=== PATIENT | female | born 1965 | race Hispanic/Latino ===

== ENCOUNTER 2016-04-24 15:21 | Observation (INO) | payer OTHER ==
[~2016-04-24] VITALS: Ht 157.5 cm; Wt 101.7 kg
[~2016-04-24 15:21] MED LIST: AMLODIPINE BESY10 MG PO; ANAPROX DS550 M1 PO; ASPIRIN EC325 MG PO; CELEBREX200 MG PO; CELECOXIB200 MG PO; CLONIDINE HCL0.1 MG PO; COLACE100 MG PO; ELIMITE 5% CREA60 GM TP; ELOCON 0.1% CRE15 GM TP; ENDOCET 5-3251 EACH PO; FEOSOL325 MG PO; FLONASE16 G1 BOTH NARES; FLUOXETINE HCL10 M1 PO; FLUOXETINE HCL20 M1 PO; FLUOXETINE HCL20 MG PO; FLUTICASONE PRO16 GM BOTH NARES; LOPRESSOR50 MG PO; LORATADINE10 M2 PO; LOSARTAN-HCTZ1 EAC1 PO; MEDROL DOSEPAK4 MG PO; METOPROLOL TART25 MG PO; METOPROLOL TART50 MG PO; MOBIC7.5 MG PO; MOMETASONE FURO45 GM TP; MOTRIN800 MG PO; NAPROSYN500 MG PO; NIX 5% CREAM60 GM TP; NOHOMEMEDS; NORCO 5/3251 TABLET PO; NYSTATIN-TRIAMC15 G1 TP; ST. JOSEPH ASPI81 MG PO; ULTRAM50 MG PO; VENLAFAXINE HC150 M1 PO; VENLAFAXINE HCL75 M3 PO; ZOFRAN ODT4 MG PO
[2016-04-24 16:12] LABS: HEMATOCRIT 39.5 % (36.0-46.0); MCH 28.9 PG (29.0-34.0); MCHC 33.2 G/DL (30.0-36.0); MEAN PLAT.VOLUME 10.1 uM^3 (9.5-12.4); PLATELET COUNT 211 K/uL (156-360); RBC DIS.WIDTH-CV 13.7 % (11.8-14.6); RBC DIS.WIDTH-SD 42.6 % (39-53); RED BLOOD COUNT 4.54 M/uL (3.80-5.20); WHITE BLOOD COUNT 7.3 K/uL (4.1-10.2)
[2016-04-24 16:23] LABS: D-DIMER ELISA 0.29 mg/L FEU (< 0.57)
[2016-04-24 16:39] LABS: CHLORIDE 102 mEq/L (99-109); POTASSIUM 3.5 mEq/L (3.7-5.4); SODIUM 140 mEq/L (136-147)
[2016-04-24 16:40] LABS: GLUCOSE 97 mg/dL (70-99)
[2016-04-24 16:42] LABS: ANION GAP 9 MEQ/L (2-14)
[2016-04-24 16:44] LABS: GFR ESTIMATE (CALCULATED) > 59 mL/min/
[2016-04-24 16:45] LABS: UREA NITROGEN (BUN) 17 mg/dL (9-23)
[2016-04-24 16:51] LABS: TROP-I INTERPRETATION NEGATIVE; TROPONIN-I < 0.01 ng/mL (0.0-0.30)
[2016-04-24 18:52] LABS: TROP-I INTERPRETATION NEGATIVE; TROPONIN-I < 0.01 ng/mL (0.0-0.30)
[2016-04-24 19:06] LABS: PROTHROMBIN TIME 10.2 (9.2-11.2); PTT 28.3 (25-32)
[2016-04-24 19:09] LABS: TOTAL BILIRUBIN 0.7 mg/dL (0.0-1.0)
[2016-04-24 19:10] LABS: ALKALINE PHOSPHATASE 86 IU/L (3-129)
[2016-04-24 19:13] LABS: DIRECT BILIRUBIN 0.3 mg/dL (0.0-0.3)
[2016-04-24] MEDS ORDERED: VENLAFAXINE HCL75 M3 PO (21:02)
[2016-04-24] MEDS ORDERED: FLONASE16 G1 BOTH NARES (21:03)
[2016-04-24] MEDS ORDERED: ZOLPIDEM TARTRA10 MG PO (21:03)
[2016-04-24] MEDS ORDERED: ZANTAC150 MG PO (21:03)
[2016-04-24 22:29] VITALS: BP 116/62
[2016-04-25 01:27] LABS: TROP-I INTERPRETATION NEGATIVE; TROPONIN-I < 0.01 ng/mL (0.0-0.30)
[2016-04-25 04:54] VITALS: BP 100/53
[2016-04-25 05:57] LABS: HEMATOCRIT 38.1 % (36.0-46.0); MCHC 31.8 G/DL (30.0-36.0); MCV 88.2 FL (83-99); MEAN PLAT.VOLUME 10.4 uM^3 (9.5-12.4); PLATELET COUNT 220 K/uL (156-360); RBC DIS.WIDTH-SD 45.7 % (39-53); RED BLOOD COUNT 4.32 M/uL (3.80-5.20); WHITE BLOOD COUNT 6.3 K/uL (4.1-10.2)
[2016-04-25 06:02] LABS: TROP-I INTERPRETATION NEGATIVE; TROPONIN-I < 0.01 ng/mL (0.0-0.30)
[2016-04-25 06:14] LABS: ANION GAP 8 MEQ/L (2-14); CHLORIDE 103 MEQ/L (99-109); GFR ESTIMATE (CALCULATED) 56 mL/min/; GLUCOSE 86 mg/dL (70-99); POTASSIUM 3.9 MEQ/L (3.7-5.4); SAMPLE HEMOLYSIS CHECK 0; SAMPLE ICTERIC CHECK 0; SAMPLE LIPEMIA CHECK 0; SODIUM 141 MEQ/L (136-147); UREA NITROGEN (BUN) 21 mg/dL (9-23)
[2016-04-25 08:47] VITALS: BP 103/58
[2016-04-25 11:36] VITALS: BP 100/58
== END 2016-04-25 14:42 | disposition home or self-care (01) ==
LOC: EME 15:21 → EDOF 20:58 → 5WEST 20:58
PROVIDERS: Hospitalist; Physician Assistant Medical
DX: R07.89 Other chest pain (principal); R94.31 Abnormal electrocardiogram [ECG] [EKG]; R20.0 Anesthesia of skin; M79.672 Pain in left foot; M54.9 Dorsalgia, unspecified; I10 Essential (primary) hypertension; E78.5 Hyperlipidemia, unspecified; E66.01 Morbid (severe) obesity due to excess calories; Z68.41 Body mass index [BMI] 40.0-44.9, adult; M19.90 Unspecified osteoarthritis, unspecified site; Z87.891 Personal history of nicotine dependence; F41.9 Anxiety disorder, unspecified; F32.9 Major depressive disorder, single episode, unspecified
CPT/HCPCS: 71020; 72148; 80048; 80076; 84484; 85027; 85379; 85610; 85730; 93005; 93970; 99281; 99285; G0378; J1650; J1885; J2060; J2270

== ENCOUNTER 2016-12-16 20:23 | Emergency (ER) | payer OTHER ==
[~2016-12-16] VITALS: Ht 157.5 cm; Wt 101.1 kg
[~2016-12-16 20:23] MED LIST changes: +ZANTAC150 MG PO; +ZOLPIDEM TARTRA10 MG PO
[2016-12-16 21:21] LABS: HEMATOCRIT 38.6 % (36.0-46.0); MCH 27.6 PG (29.0-34.0); MCHC 32.6 G/DL (30.0-36.0); MCV 84.6 FL (83-99); MEAN PLAT.VOLUME 10.8 uM^3 (9.5-12.4); PLATELET COUNT 233 K/uL (156-360); RBC DIS.WIDTH-CV 13.2 % (11.8-14.6); RBC DIS.WIDTH-SD 40.7 % (39-53); RED BLOOD COUNT 4.56 M/uL (3.80-5.20); WHITE BLOOD COUNT 6.9 K/uL (4.1-10.2)
[2016-12-16 21:31] LABS: CHLORIDE 106 mEq/L (99-109); POTASSIUM 3.2 mEq/L (3.7-5.4); SODIUM 140 mEq/L (136-147)
[2016-12-16 21:33] LABS: GLUCOSE 106 mg/dL (70-99)
[2016-12-16 21:35] LABS: ANION GAP 10 MEQ/L (2-14)
[2016-12-16 21:37] LABS: GFR ESTIMATE (CALCULATED) > 59 mL/min/
[2016-12-16 21:38] LABS: UREA NITROGEN (BUN) 24 mg/dL (9-23)
[2016-12-16 21:42] LABS: TROP-I INTERPRETATION NEGATIVE; TROPONIN-I < 0.01 ng/mL (0.0-0.30)
[2016-12-16 23:30] LABS: TROP-I INTERPRETATION NEGATIVE; TROPONIN-I < 0.01 ng/mL (0.0-0.30)
[2016-12-17 00:44] VITALS: BP 134/87
== END 2016-12-17 00:45 | disposition home or self-care (01) ==
LOC: EME 20:23
PROVIDERS: Emergency Medicine
DX: G62.9 Polyneuropathy, unspecified (principal); R07.9 Chest pain, unspecified; I10 Essential (primary) hypertension; J45.909 Unspecified asthma, uncomplicated; Z87.891 Personal history of nicotine dependence; F32.9 Major depressive disorder, single episode, unspecified; K21.9 Gastro-esophageal reflux disease without esophagitis; Z88.0 Allergy status to penicillin
CPT/HCPCS: 70450; 71020; 80048; 84484; 85027; 93005; 99281; 99285; J3010

== ENCOUNTER 2017-02-14 11:31 | Emergency (ER) | payer OTHER ==
[~2017-02-14] VITALS: Ht 157.5 cm; Wt 107.5 kg
[2017-02-14] MEDS ORDERED: PREDNISONE50 MG PO (13:47)
[2017-02-14 13:54] VITALS: BP 158/101
== END 2017-02-14 13:54 | disposition home or self-care (01) ==
LOC: EME 11:31
DX: M17.11 Unilateral primary osteoarthritis, right knee (principal); G89.29 Other chronic pain; M25.561 Pain in right knee; I10 Essential (primary) hypertension; Z79.82 Long term (current) use of aspirin; Z87.891 Personal history of nicotine dependence
CPT/HCPCS: 73564; 99281; 99284

== ENCOUNTER 2017-06-17 14:03 | Emergency (ER) | payer OTHER ==
[~2017-06-17] VITALS: Ht 157.5 cm; Wt 96.9 kg
[~2017-06-17 14:03] MED LIST changes: +PREDNISONE50 MG PO
[2017-06-17] MEDS ORDERED: PERCOCET 5/31 TABLET PO (15:11)
[2017-06-17 15:27] VITALS: BP 146/104
== END 2017-06-17 15:29 | disposition home or self-care (01) ==
LOC: EME 14:03
DX: S06.0X0A Concussion without loss of consciousness, initial encounter (principal); S00.03XA Contusion of scalp, initial encounter; S60.221A Contusion of right hand, initial encounter; Y04.2XXA Assault by strike against or bumped into by another person, initial encounter; Y07.9 Unspecified perpetrator of maltreatment and neglect; Z88.0 Allergy status to penicillin; Z88.5 Allergy status to narcotic agent
CPT/HCPCS: 70450; 70486; 73130; 99281; 99284